=== PATIENT | female | born 1990 ===

== ENCOUNTER 2018-04-22 00:14 | Emergency (ER) | payer MEDICAID ==
[2018-04-22 00:20] VITALS: BMI 24.7
--- NOTE | 2018-04-22 00:21 | ED PDOC ---
Arrival/HPI - General Historian: Patient - History of Present Illness Narrative History of Present Illness (Text): 04/22/18 00:19 27 year old female, whose past medical history includes cholecystitis, and chronic hypoglycemic episodes, presents to the emergency department with hy poglycemic episode. Patient's family inform she began shaking upon walking into the kitchen. Patient informs she ate earlier in the day. Boyfriend states he gave her glucose tablets and some syrup. Boyfriend states she was close to passing out, but did not. Patient denies any headache, dizziness, chest pain, fevers, chills, shortness of breath, cough, abdominal pain, nausea, vomiting, diarrhea, back pain, neck pain, or any other complaint. Time/Duration: Prior to Arrival Symptom Onset: Gradual Symptom Course: Improving Activities at Onset: Light Context: Home Past Medical History - Provider Review Nursing Documentation Reviewed: Yes Family/Social History - Physician Review Nursing Documentation Reviewed: Yes Family/Social History: No Known Family HX Allergies/Home Meds Allergies/Adverse Reactions: Allergies No Known Allergies Allergy (Verified 04/22/18 00:27) Review of Systems - Physician Review All systems were reviewed & negative as marked: Yes - Review of Systems Constitutional: absent: Fevers, Night Sweats Respiratory: absent: SOB, Cough Cardiovascular: Syncope (Near Syncope s/p hypoglycemia). absent: Chest Pain Gastrointestinal: absent: Abdominal Pain, Diarrhea, Nausea, Vomiting Musculoskeletal: absent: Back Pain, Neck Pain Neurological: absent: Headache, Dizziness Physical Exam - Systems Exam Head: Present: Atraumatic, Normocephalic Pupils: Present: PERRL Extroacular Muscles: Present: EOMI Conjunctiva: Present: Normal Mouth: Present: Moist Mucous Membranes Neck: Present: Normal Range of Motion Respiratory/Chest: Present: Clear to Auscultation, Good Air Exchange. No: Respiratory Distress, Accessory Muscle Use Cardiovascular: Present: Regular Rate and Rhythm, Normal S1, S2. No: Murmurs Abdomen: No: Tenderness, Distention, Peritoneal Signs Back: Present: Normal Inspection Upper Extremity: Present: Normal Inspection. No: Cyanosis, Edema Lower Extremity: Present: Normal Inspection. No: Edema Neurological: Present: GCS=15, CN II-XII Intact, Speech Normal Skin: Present: Warm, Dry, Normal Color. No: Rashes Psychiatric: Present: Alert, Oriented x 3, Normal Insight, Normal Concentration Medical Decision Making ED Course and Treatment: 04/22/18 00:20 Impression: 27 year old female presents with hypoglycemia Plan: --Labs -- D5NS gtt -- POC Urine -- Urinalysis -- Reassess and disposition Prior Visits: Notes and results from previous visits were reviewed Progress Notes: 04/22/18 01:27 Labs reveal chemistry showing a glucose of 67, however repeat fingerstick shows patient with glucose 148. Patient reevaluated and feels much better. - Scribe Statement The provider has reviewed the documentation as recorded by the Scribe Ever Bradford Provider Scribe Attestation: All medical record entries made by the Scribe were at my direction and personally dictated by me. I have reviewed the chart and agree that the record accurately reflects my personal performance of the history, physical exam, medical decision making, and the department course for this patient. I have also personally directed, reviewed, and agree with the discharge instructions and disposition. Disposition/Present on Arrival - Present on Arrival Any Indicators Present on Arrival: No History of DVT/PE: No History of Uncontrolled Diabetes: No Urinary Catheter: No History of Decub. Ulcer: No - Disposition Have Diagnosis and Disposition been Completed?: No Diagnosis: Hypoglycemia Disposition: HOME/ ROUTINE Disposition Time: :31 Patient Plan: Discharge Condition: IMPROVED Discharge Instructions (ExitCare): Low Blood Sugar, Adult (DC), Low Blood Sugar in People Without Diabetes Print Language: YORUBA Additional Instructions: All medical record entries made by the Scribe were at my direction and personally dictated by me. I have reviewed the chart and agree that the record accurately reflects my personal performance of the history, physical exam, medical decision making, and the department course for this patient. I have also personally directed, reviewed, and agree with the discharge instructions and disposition. Referrals: Jose Roberto Jeffery [Medical Doctor] - Follow up with primary Forms: [employer] (Tristanian)
[2018-04-22 00:45] VITALS: RESP 18; TEMP 98.1; O2SAT 100
[2018-04-22] MEDS ORDERED: Dextrose 5%/0.9% NS 1,000 ML IV SCH (00:45)
[2018-04-22 01:00] LABS: BASO # 0.03 K/mm3 (0.0-2.0); BASO % 0.2 % (0.0-3.0); EOS # 0.1 (0.0-0.7); EOS % 0.9 % (1.5-5.0); HEMOGLOBIN 13.9 g/dL (12.0-16.0); LYMPH # 2.7 (1.2-3.4); LYMPH % 21.9 % (22.0-35.0); MEAN CELL VOLUME 90.5 fl (80.0-105.0); MEAN CORPUSCULAR HEMOGLOBIN 30.1 pg (25.0-35.0); MEAN CORPUSCULAR HGB CONC 33.3 g/dl (31.0-37.0); MEAN PLATELET VOLUME 9.9 fl (7.0-11.0); MONO # 0.8 (0.1-0.6); MONO % 6.8 % (1.0-6.0); RBC 4.62 10^6/uL (3.5-6.1); RED CELL DISTRIBUTION WIDTH 14.1 % (11.5-14.5); WHITE BLOOD COUNT 12.3 10^3/uL (4.5-11.0)
[2018-04-22 01:05] LABS: ALB/GLOB RATIO 1.4 (1.1-1.8); ALT/SGPT 20 U/L (7-56); AST/SGOT 34 U/L (14-36); BLOOD UREA NITROGEN 21 mg/dL (7-21); CALCIUM 9.5 mg/dL (8.4-10.5); GFR NON-AFRICAN AMERICAN > 60
[2018-04-22 01:28] LABS: URINE BILIRUBIN NEGATIVE (NEGATIVE); URINE BLOOD SMALL (NEGATIVE); URINE GLUCOSE (UA) 250 mg/dL (NEGATIVE); URINE LEUKOCYTE ESTERASE TRACE Leu/uL (NEGATIVE); URINE PROTEIN NEGATIVE mg/dL (<30 mg/dL); URINE UROBILINOGEN 0.2 E.U./dL (<1 E.U./dL)
[2018-04-22 01:39] VITALS: BP 121/75; PULSE 80
[2018-04-22 01:43] LABS: URINE APPEARANCE CLEAR (CLEAR); URINE COLOR YELLOW (YELLOW)
[2018-04-22 01:58] LABS: URINE AMORPHOUS SEDIMENT SMALL /hpf; URINE BACTERIA FEW /hpf
== END 2018-04-22 01:39 | disposition home or self-care (01) ==
LOC: ED 00:14
DX: E16.2 Hypoglycemia, unspecified (principal)
CPT/HCPCS: 80053; 81001; 81025; 82948; 85025; 87086; 99283; J7042